=== PATIENT | male | born 1975 | race American Indian/Alaskan Native ===

== ENCOUNTER 2017-11-30 01:28 | Emergency (ER) | payer MEDICARE ==
[2017-11-30 01:29] VITALS: BMI 31.0
[2017-11-30 01:57] VITALS: O2SAT 97
[2017-11-30] MEDS ORDERED: Sodium Chloride 0.9% 1,000 ML IV STA (01:59)
--- NOTE | 2017-11-30 02:10 | ED PDOC ---
HPI: Back Time Seen by Provider: 11/30/17 01:39 Chief Complaint (Nursing): Back Pain Chief Complaint (Provider): neck pain History Per: Patient, EMS History/Exam Limitations: no limitations Onset/Duration Of Symptoms: Days (7) Current Symptoms Are (Timing): Still Present Exacerbating Factor(s): Turning, Movement Additional Complaint(s): 42 y/o nondomiciled male brought in by EMS for evaluation of neck pain x 1 week. Patient states he thinks he may have fallen. Denies headache, dizziness , nausea/vomiting, numbness/weakness of extremities, bowel/bladder incontinence. Past Medical History Reviewed: Historical Data, Nursing Documentation, Vital Signs Vital Signs: Last Vital Signs Temp 97.5 F L 11/30/17 01:35 Pulse 103 H 11/30/17 01:35 Resp 18 11/30/17 01:35 BP 149/103 H 11/30/17 01:35 Pulse Ox 97 11/30/17 01:35 - Medical History PMH: Diabetes Denies: Chronic Kidney Disease - Surgical History Surgical History: No Surg Hx - Family History Family History: States: No Known Family Hx - Living Arrangements Living Arrangements: Alone - Social History Current smoker - smoking cessation education provided: Yes Alcohol: > 2 Drinks/Day Drugs: Denies - Home Medications Home Medications: Ambulatory Orders Medication Instructions Recorded Cyclobenzaprine [Cyclobenzaprine 10 mg PO BID PRN #10 tab 11/30/17 HCl] Naproxen [Naprosyn] 500 mg PO Q12 PRN #20 tablet 11/30/17 - Allergies Allergies/Adverse Reactions: Allergies Allergy/AdvReac Type Severity Reaction Status Date / Time No Known Allergies Allergy Verified 08/21/17 22:38 Review of Systems ROS Statement: Except As Marked, All Systems Reviewed And Found Negative Musculoskeletal: Positive for: Neck Pain Physical Exam - Reviewed Nursing Documentation Reviewed: Yes Vital Signs Reviewed: Yes - Physical Exam Appears: Positive for: Well, Non-toxic, No Acute Distress Head Exam: Positive for: ATRAUMATIC, NORMAL INSPECTION, NORMOCEPHALIC Skin: Positive for: Normal Color Eye Exam: Positive for: Normal appearance ENT: Positive for: Normal ENT Inspection Cardiovascular/Chest: Positive for: Regular Rate, Rhythm Respiratory: Positive for: Normal Breath Sounds Gastrointestinal/Abdominal: Positive for: Normal Exam Back: Positive for: Muscle Spasm (bilateral cspine paraspinals). Negative for: L CVA Tenderness, R CVA Tenderness, Vertebral Tenderness, Decreased ROM Extremity: Positive for: Normal ROM Neurologic/Psych: Positive for: Alert, Oriented - ECG O2 Sat by Pulse Oximetry: 97 - Progress ED Course And Treament: cspine xray, toradol IV accucheck elevated; will check ABG and give IV fluids. Repeat accucheck 203. Patient educated on findings, discharged with rx naproxen, flexeril. Advised follow up PMD 2-3 days. Return precautions given Disposition - Clinical Impression Clinical Impression: Neck pain, Hyperglycemia - Patient ED Disposition Is Patient to be Admitted: No Counseled Patient/Family Regarding: Studies Performed, Diagnosis, Need For Followup, Rx Given - Disposition Referrals: [facility] [Outside] Disposition: Routine/Home Disposition Time: 05:27 Condition: IMPROVED Prescriptions: Cyclobenzaprine [Cyclobenzaprine HCl] 10 mg PO BID PRN #10 tab PRN Reason: Muscle Spasm Naproxen [Naprosyn] 500 mg PO Q12 PRN #20 tablet PRN Reason: Pain, Moderate (4-7) Instructions: Hyperglycemia, Adult, Neck Pain Forms: [employer] (Portuguese)
[2017-11-30 03:02] LABS: ABG ALLEN TEST YES; ARTERIAL BLOOD GAS HCO3 22.6 mmol/L (21-28); ARTERIAL BLOOD GAS PCO2 41 mm/Hg (35-45); ARTERIAL BLOOD GAS PH 7.35 (7.35-7.45); ARTERIAL BLOOD GAS PO2 77 mm/Hg (80-100); ARTERIAL BLOOD GAS TCO2 23.9 mmol/L (22-28)
[2017-11-30 05:32] VITALS: BP 133/91; PULSE 89; RESP 19; TEMP 98.2
--- NOTE | 2017-11-30 08:42 | RAD ---
PROCEDURE: Cervical Spine Radiographs. HISTORY: Pain. COMPARISON: None. FINDINGS: BONES: No acute fracture or destructive bony lesion identified. No spondylolisthesis. Multilevel spondylosis appears [id number] severity concentrated at the upper to mid cervical levels. DISC SPACES: Normal intervertebral disc heights are appreciated though multilevel spondylosis identified. Multilevel facet joint degenerative changes appear mild to moderate severity throughout the cervical spine. SOFT TISSUES: Prevertebral soft tissues at the upper cervical spine appear somewhat prominent (almost 1 cm in thickness) but without emphysematous soft tissue changes identified grossly. No focal area of thickening or nodularity is appreciated. OTHER FINDINGS: None. IMPRESSION: Normal curvature with no fracture or spondylolisthesis appreciated throughout cervical spine. Multilevel cervical spondylosis identified on a roiu-il-vvdilbay basis and diffuse facet joint arthropathy is appreciated as well. Mild prominence of the upper cervical prevertebral soft tissues is nonspecific. Clinical correlation and consideration of neck CT with contrast may be helpful as a precautionary measure.
== END 2017-11-30 06:05 | disposition home or self-care (01) ==
LOC: H.ER 01:28
DX: E11.65 Type 2 diabetes mellitus with hyperglycemia (principal); M54.2 Cervicalgia; M54.9 Dorsalgia, unspecified
CPT/HCPCS: 36600; 72050; 82803; 82948; 96374; 99283; J1885; J7040